=== PATIENT | male | born 1945 | race Caucasian/White ===

== ENCOUNTER 2022-08-14 00:12 | Day surgery (SDC) | payer MEDICARE, BC, SELFPAY ==
--- NOTE | 2022-08-13 21:25 | P.HP_ITS ---
History of Present Illness History of Present Illness Consent: Risks, benefits, and alternatives have been discussed and questions answered. Patient agrees to proceed with procedure. Chief complaint: SHAYAN; hx of colon polyps Narrative: Rocky Joshi Jr. is a 77 year old male referred because of SHAYAN. History of smalll bowel AVM's Review of Systems Review of Systems: All systems reviewed & are unremarkable except as noted in HPI and below PMFSH Past Medical History Medical History Coronary artery disease Insulin dependent diabetes mellitus Social History Social History Smoking packs per day: 2 Smoking cigarettes per day: 40.0 Years smoked: 60 Smoking pack-years: 120.00 Smoking status: Current every day smoker Tobacco type: cigarettes Additional smoking assessment comments: CURRENTY DOWN TO .5 PACKS A DAY Alcohol intake: never Substance use: never Substance use type: does not use Living arrangements: with family Spiritual care concerns: No Meds Home Medications and Allergies Home Medications Medication Instructions Recorded Confirmed Type gabapentin 600 mg tablet 600 mg PO BID 07/27/19 08/14/22 History insulin glargine 100 unit/mL 35 unit subcut BID 07/27/19 08/14/22 History subcutaneous solution isosorbide mononitrate 30 mg 30 mg PO DAILY 07/27/19 08/14/22 History tablet,extended release 24 hr metoprolol tartrate 25 mg tablet 25 mg PO BID 07/27/19 08/14/22 History omeprazole 20 mg capsule,delayed 20 mg PO DAILY 07/27/19 08/14/22 History release simvastatin 80 mg tablet 80 mg PO HS 07/27/19 08/14/22 History albuterol sulfate 90 mcg/actuation 1 puff inhalation Q4H PRN 08/12/22 08/14/22 History aerosol inhaler Shortness Of Breath aspirin 81 mg capsule 81 mg PO 3XW 08/12/22 08/14/22 History empagliflozin 25 mg tablet 25 mg PO DAILY 08/12/22 08/14/22 History (Jardiance) ferrous sulfate 325 mg (65 mg 325 mg PO BID 08/12/22 08/14/22 History iron) tablet fluticasone fur. 100 mcg-umeclid 1 inh inhalation DAILY 08/12/22 08/14/22 His tory 62.5 mcg-vilant 25 mcg inhalat.powder (Trelegy Ellipta) furosemide 40 mg tablet 40 mg PO PRN PRN Edema 08/12/22 08/14/22 History Allergies Allergy/AdvReac Type Severity Reaction Status Date / Time No Known Allergies Allergy Verified 08/14/22 12:38 Exam Const: General: alert Orientation/consciousness: patient oriented x3 Resp: Auscultation: clear to auscultation bilaterally Cardio: Rhythm: regular rhythm GI: GI Palp: Yes Soft to palpation and No Tenderness to palpation present (GI) Neuro: General: patient oriented x3 Assessment and Plan Assessment and plan (1) Iron deficiency anemia: Code(s): D50.9 - Iron deficiency anemia, unspecified Status: Acute Assessment and Plan: EGD with possible biopsy or dilatation or cautery.Colonoscopy with possible biopsy or polypectomy or cautery or injection of substances.
[2022-08-14 12:40] VITALS: BP 113/45; PULSE 64; RESP 18; TEMP 36.7; O2SAT 98; BMI 31.8
[2022-08-14] MEDS: LACTATED RINGERS 1,000 ML 150 ML IV CONT (12:50)
[2022-08-14] MEDS: GENTAMICIN 80MG/SOD CHL 50 ML 80 MG/50 ML BAG 100 MG IVPB (12:52)
[2022-08-14 13:00] LABS: Glucose Point of Care 113 mg/dl (65-105)
--- NOTE | 2022-08-14 13:08 | WPDANESEPPF ---
Anes - Initial Pre Proc Eval Procedure: Operation Date: 08/14/22 14:00 Proposed Procedures p Esophagogastroduodenoscopy & Screening Colonoscopy - Zuhair Melgar MD Date/Time: 08/14/22 13:08 Surgeon: Zuhair Melgar MD Pre Op Diagnosis: SHAYAN; hx of colon polyps Patient Data Age: 77 Gender: M Height: 1.65 m Weight: 86.7 kg Last Vital Signs Temp 98.0 F 08/14/22 12:40 Pulse 64 08/14/22 12:40 Resp 18 08/14/22 12:40 BP 113/45 L 08/14/22 12:40 Pulse Ox 98 08/14/22 12:40 O2 Del Method Room Air 08/14/22 12:40 Allergies Allergy/AdvReac Type Severity Reaction Status Date / Time No Known Allergies Allergy Verified 08/14/22 12:38 Home Medications Medication Instructions Recorded Confirmed Type gabapentin 600 mg tablet 600 mg PO BID 07/27/19 08/14/22 History insulin glargine 100 unit/mL 35 unit subcut BID 07/27/19 08/14/22 History subcutaneous solution isosorbide mononitrate 30 mg 30 mg PO DAILY 07/27/19 08/14/22 History tablet,extended release 24 hr metoprolol tartrate 25 mg tablet 25 mg PO BID 07/27/19 08/14/22 History omeprazole 20 mg capsule,delayed 20 mg PO DAILY 07/27/19 08/14/22 History release simvastatin 80 mg tablet 80 mg PO HS 07/27/19 08/14/22 History albuterol sulfate 90 mcg/actuation 1 puff inhalation Q4H PRN 08/12/22 08/14/22 History aerosol inhaler Shortness Of Breath aspirin 81 mg capsule 81 mg PO 3XW 08/12/22 08/14/22 History empagliflozin 25 mg tablet 25 mg PO DAILY 08/12/22 08/14/22 History (Jardiance) ferrous sulfate 325 mg (65 mg 325 mg PO BID 08/12/22 08/14/22 History iron) tablet fluticasone fur. 100 mcg-umeclid 1 inh inhalation DAILY 08/12/22 08/14/22 History 62.5 mcg-vilant 25 mcg inhalat.powder (Trelegy Ellipta) furosemide 40 mg tablet 40 mg PO PRN PRN Edema 08/12/22 08/14/22 History Laboratory Tests 08/14/22 12:57 POC Capillary Glucose 113 mg/dl H mg/dl (65-105) Patient hx anesthesia problems: none Family hx anesthesia problems: none Results Review: All pre-operative results and documents have been reviewed as part of the pre-operative evaluation. [facility] Past Medical History Medical History Coronary artery disease Insulin dependent diabetes mellitus Social History Social History Smoking packs per day: 2 Smoking cigarettes per day: 40.0 Years smoked: 60 Smoking pack-years: 120.00 Smoking status: Current every day smoker Tobacco type: cigarettes Additional smoking assessment comments: CURRENTY DOWN TO .5 PACKS A DAY Alcohol intake: never Substance use: never Substance use type: does not use Living arrangements: with family Spiritual care concerns: No Anes - Eval Final PreProcedure Day of Procedure 08/14/22 13:08 Patient weight: obese Heart: regular rate and rhythm Lungs: clear to auscultation Airway: Mallampati scale class II Neurological: alert and oriented Last oral intake: >/= 8 hours ASA classification: IV Emergent: no Anesthetic plan: proceed Anesthesia type and monitoring: general GIVS and standard monitoring Results Review: All pre-operative results and documents have been reviewed as part of the pre-operative evaluation. Informed Consent: The patient's anesthetic plan and its attendant risks and benefits were discussed with the patient/family/POA. Questions were solicited and answers provided to the satisfaction of the patient/family/POA.
[2022-08-14] MEDS: AMPICILLIN 2 GM/NS 100 ML 2 GM/100 ML BAG IVPB (13:18)
--- NOTE | 2022-08-14 13:32 | SUR.OPER ---
EGD ENDED AT 1327, COLON BEGAN AT 1332.
[2022-08-14 13:54] VITALS: BP 104/54; PULSE 75; RESP 24; O2SAT 100
[2022-08-14 14:04] VITALS: BP 118/66; PULSE 73; RESP 22; O2SAT 97
[2022-08-14 14:07] LABS: Glucose Point of Care 88 mg/dl (65-105)
[2022-08-14 14:14] VITALS: BP 115/61; PULSE 71; RESP 19; O2SAT 97
== END 2022-08-14 14:23 | disposition home or self-care (01) ==
PROVIDERS: PCP Internal Medicine; Visit Provider Internal Medicine Gastroenterology
PROC: 0DJ08ZZ Inspection of Upper Intestinal Tract, Via Natural or Artificial Opening Endoscopic (ICD-10-PCS; CPT 43235; principal; 2022-08-14 14:00)
DX: Z12.11 Encounter for screening for malignant neoplasm of colon (principal); D12.5 Benign neoplasm of sigmoid colon; D12.2 Benign neoplasm of ascending colon; K63.5 Polyp of colon; D50.9 Iron deficiency anemia, unspecified; K21.9 Gastro-esophageal reflux disease without esophagitis; K29.70 Gastritis, unspecified, without bleeding; Z87.19 Personal history of other diseases of the digestive system; I25.10 Atherosclerotic heart disease of native coronary artery without angina pectoris; E11.9 Type 2 diabetes mellitus without complications; F17.210 Nicotine dependence, cigarettes, uncomplicated; E66.9 Obesity, unspecified; Z68.31 Body mass index [BMI] 31.0-31.9, adult; Z79.51 Long term (current) use of inhaled steroids; Z79.82 Long term (current) use of aspirin; Z79.4 Long term (current) use of insulin; Z79.84 Long term (current) use of oral hypoglycemic drugs
CPT/HCPCS: 45385; 45381; 43239; 82948; 88305; J0290; J1580; J2704; J7120

== ENCOUNTER 2025-07-19 14:13 | Outpatient (CLI) | payer MEDICARE, BC, SELFPAY ==
[2025-07-19 14:36] LABS: Hematocrit 29.6 % (42.0-52.0); Hemoglobin 7.9 g/dL (14.0-18.0); Immature Granulocyte Percent A 0.6 % (0-0.5); Lymphocytes Absolute Auto 0.47 K/mm3 (0.9-3.2); Mean Corpuscular HGB Conc 26.7 g/dl (32-36); Mean Corpuscular Hemoglobin 23.1 pg (26-34); Mean Corpuscular Volume 86.5 fl (80-100); Nucleated Red Blood Cells Absolute Auto 0.000 K/mm3 (0.0-0.012); Nucleated Red Blood Cells Perc 0.0 % (0.0-0.2); Platelet Count Result 164 k/mm3 (150-375); Red Blood Count 3.42 M/mm3 (4.6-6.20); White Blood Count 4.7 K/mm3 (4.5-10.0)
[2025-07-19 15:13] LABS: Band Neutrophils Percent 0 % (0-6); Hypochromasia 1+; Schistocytes Rare
[2025-07-19 15:14] LABS: Anisocytosis 3+; Polychromasia 1+
--- OUTSIDE RECORDS SUMMARY | 2025-07-20 00:51 | XMS_ITS | Clinical Summary ---
Author Organization [facility] Address [address] [place] [address] Care Team Providers Care Crab Backer Name Role Phone Ousmane Hines MD Primary Care Provider Allergies Active Allergy Reactions Criticality Noted Date Comments Codeine Itching Reaction: ITCHING, Niacin Ramipril Medications lisinopril (PRINIVIL,ZESTR IL) 20 mg tablet Take 20 mg by mouth daily Active simvastatin (ZOCOR) 80 mg tablet Take 1 tablet (80 mg total) by mouth nightly Active metoprolol (LOPRESSOR) 25 mg tablet Take 1 tablet (25 mg total) by mouth 2 (two) times a day Active insulin glargine (LANTUS,BASAGLA R) 100 unit/mL (3 mL) insulin pen Active glimepiride (AMARYL) 4 mg tablet Take 4 mg by mouth daily before breakfast Active furosemide (LASIX) 40 mg tablet Take 1 tablet (40 mg total) by mouth 2 (two) times a day Active gabapentin (NEURONTIN) 300 mg capsule Take 1 capsule (300 mg total) by mouth 3 (three) times a day Active isosorbide mononitrate ER (IMDUR) 30 mg 24 hr tablet Take 1 tablet (30 mg total) by mouth daily Active aspirin 81 mg chewable tablet Take 1 tablet (81 mg total) by mouth daily Active clopidogrel (PLAVIX) 75 mg tablet Take 75 mg by mouth daily Active naloxone (NARCAN) 4 mg/actuation spray,non-aeros ol CALL 911. ADMINISTER A SINGLE SPRAY INTRANASALLY INTO ONE NOSTRIL UPON SIGNS OF OPIOID OVERDOSE. MAY REPEAT AFTER 3 MINUTES IF NO RESPONSE. 4 Active HYDROcodone-jose taminophen (NORCO) 5-325 mg per tablet Take 1 tablet by mouth 3 (three) times a day 4 Active OneTouch Verio test strips strip USE 1 STRIP TO CHECK GLUCOSE ONCE DAILY 4 Active empagliflozin (JARDIANCE) 25 mg tablet Take 1 tablet (25 mg total) by mouth daily Active albuterol HFA (PROVENTIL HFA,VENTOLIN HFA,PROAIR HFA) 90 mcg/actuation inhaler Inhale 2 puffs every 6 (six) hours as needed for wheezing Active ferrous sulfate 325 mg (65 mg of elemental iron) tabletIndicatio ns:Iron Deficiency Anemia Take 1 tablet (65 mg of elemental iron total) by mouth 3 (three) times a day with meals Active omeprazole (PriLOSEC) 20 mg capsule Take 1 capsule (20 mg total) by mouth daily Active fluticasone-ume clidin-vilanter (Trelegy Ellipta) 100-62.5-25 mcg inhaler Inhale 1 puff daily Active Active Problems Problem Noted Date Diagnosed Date Arthritis of right knee 01/12/2024 Assessment & Plan (01/12/2024 2:16 PM CDT): Patient has severely advanced arthritis of the right knee and may be facing knee replacement surgery in the future. However would recommend ongoing conservative treatment due to his multiple comorbidities. The patient should stop smoking and work on weight reduction. After reviewing the treatment options he elected undergo a cortisone injection today to the severity of his acute exacerbation. He was advised the risks of the procedure including injection site irritation infection with any invasive procedure albeit small with an injection itself. Venous stasis 01/12/2024 Assessment & Plan (01/12/2024 2:08 PM CDT): Patient has post phlebitic syndrome with venous stasis disease and likely peripheral vascular disease. He has aortic atherosclerosis and has undergone bypass surgery. The patient is a smoker and diabetic the puts him at increased risk for peripheral vascular disease. This certainly can produce radicular pains in the legs and it may be advisable to get evaluated for his ongoing circulation. He may find support hose helpful is a counter measure for swelling. History of left knee replacement 01/12/2024 Assessment & Plan (01/12/2024 2:10 PM CDT): Patient has mild residual contractures in his left knee following total knee replacement. Unfortunately removing scar tissue induces new scar tissue and revision surgery is not likely to significantly change the performance of his knee. He has significant venous stasis disease in his legs and likely peripheral vascular disease that may interfere with wound healing as well. Would recommend stretching exercises and use of Voltaren gel topically. Peripheral vascular disease 01/12/2024 Assessment & Plan (01/12/2024 2:15 PM CDT): Patient likely has some underlying peripheral vascular disease. Would recommend evaluation by a vascular specialist and a referral was given. This may reduce the pain level in his legs and certainly may improve blood flow and any potential healing from surgery that may be required in the future. 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 Overview (12/06/2016): Brachial plexus disorder Aortic valve stenosis 03/17/2013 Diabetes mellitus 03/17/2013 Surgical History Surgery Date Site/Laterality Comments MENISCUS SURGERY Right Meniscus surgery OTHER SURGICAL HISTORY percutaneous transluminal balloon angioplasty with insertion of stent into coronary artery CORONARY ARTERY BYPASS GRAFT CABG KNEE SURGERY 05/03/2020 Left total Medical History Medical History Date Comments Hyperlipidemia Hyperlipidemia Hypertension Hypertension Diabetes mellitus Diabetes Hx Other Medical 2013 Aortic Valve Re placement Heart valve disease Valvular dis ease Myocardial infarction (HCC) Myoc ardial infarction Adiposity Obesity Osteoarthritis Osteoarthritis Chronic coronary artery disease Coronary artery disease Family History Medical History Relation Name Comments Other Other 1 Family history of Cancer, liver; Diabetes Other 2 Family history of Diabetes mellitus; Heart disease Other 3 Family history of Heart disease; Relation Name Status Comments Brother 1 Alive Brother 2 Alive Brother 3 Alive Father Mother Other 1 Other 2 Other 3 Sister Social History Tobacco Use Types Packs/Day Years Used Date Smoking Tobacco: Every Day Cigarettes 1 61.5 Started: 01/12/1964 Tobacco Cessation:Ready to Q uit: Not Asked; Counseling Given: Not Answered Alcohol Use Standard Drinks/Week Comments Yes 0 (1 standard drink = 0.6 oz pur e alcohol) Sex and Gender Information Value Date Recorded Sex Assigned at Not on file Legal Sex Male 12:54 AM [employer] Gender Identity Not on file Sexual Orientation Not on file Last Filed Vital Signs Vital Sign Reading Time Taken Comments Blood Pressure 121/72 11/16/2024 2:06 PM CDT Pulse 82 11/16/2024 2:06 PM CDT Temperature 36.7 C (98 F) 10/03/2020 10:13 AM [employer] Respiratory Rate 16 11/16/2024 2:06 PM CDT Oxygen Saturation 92% 11/16/2024 2:06 PM CDT Inhaled Oxygen Concentration - - Weight 81.6 kg (180 lb) 11/16/2024 2:06 PM CDT Height 165.1 cm (5' 5) 11/16/2024 2:06 PM CDT Body Mass Index 29.95 11/16/2024 2:06 PM CDT Plan of Treatment Health Maintenance Due Date Last Done Comments Albumin Creatinine Ratio, Urine 1943 Depression Screening 1943 Fall Risk Assessment 1943 Hemoglobin A1C 1943 eGFR 1943 Dilated Eye Exam 1943 Foot Exam 1943 Hepatitis B Screening 1961 Zoster Vaccine (1 of 2) 1993 DTaP/Tdap/Td Vaccine (1 - Tdap) 04/21/2003 3 Well Visit 65+ 02/06/2008 Lipid Panel 07/23/2014 07/23/2013, 03/31/2013 Pneumococcal vaccine 65+ (2 of 2 - PPSV23, PCV20, or PCV21) 01/05/2015 11/10/2014, 12/29/2002 Covid-19 Vaccine (4 - 2024-2 6 season) 2025 09/05/2021, 01/02/2021, 12/05/2020 Influenza Vaccine (#1) 2025 , 09/08/2023, 07/17/2019, Additional history exists Abdominal Aortic Aneurysm (A AA) Screen Completed 03/06/2018 Procedures Procedure Name Priority Date/Time Associated Diagnosis Comments PLASMA LIPID PANEL Routine 03/31/2013 3: 47 PM CDT from Last 3 Months or Most Recently Relevant to Health Maintenance Results * (ABNORMAL) Plasma lipid panel (03/31/2013 3:47 PM CDT) Cholesterol 66(L) 100 - 200 mg/dl HISTORICAL RESULTS Triglycerides 85 10 - 150 mg/dl HISTORICAL RESULTS HDL 29(L) 40 - 59 mg/dl HISTORICAL RESULTS LDL 20(L) 60 - 129 mg/dl HISTORICAL RESULTS Plasma 03/31/2013 3:47 PM CDT Narrative HISTORICAL RESULTS - 03/31/2013 6:07 PM CDT This lipid panel was ausomatically ordered due to an abnormal Troponin-I. The dietary status of the patient at the collection time should be correlated with the lipid results. Kenrick Killian MD LAB BLOOD ORDERABLES Final Resu lt HISTORICAL RESULTS from Last 3 Months or Most Recently Relevant to Health Maintenance Insurance MEDICARE [facility] [employer] [place] [employer] MEDICARE MEDICARE [facility] [employer] [employer] Care Teams Crab Backer Relationship Specialty Start Date End Date Ousmane Hines MD PCP - General 01/14/17
== END 2025-07-19 14:14 | disposition home or self-care (01) ==
PROVIDERS: PCP Internal Medicine; Visit Provider Internal Medicine
DX: D64.9 Anemia, unspecified (principal)
CPT/HCPCS: 36415; 85025; 86850; 86900; 86901